=== PATIENT | male | born 1945 | race Caucasian/White ===

== ENCOUNTER 2016-08-15 09:10 | Day surgery (SDC) | payer BC, MEDICARE ==
--- NOTE | ~2016-08-15 | OP ---
Record Of Operation [facility] [place] [address] NAME: MARK SERNA : [birth year] STATUS : REG [facility]#: [id number] AGE: 70 ADM/REG DATE : 08/15/16 MR#: [id number] REPORT SERV DATE: 08/15/16 DICTATED BY: MARQUIS DHILLON DATE: 08/15/16 REPORT STATUS : Draft TRANSCRIBED BY: [employer] DATE: 08/15/16 DATE OF PROCEDURE: 08/15/2016 PROCEDURE: Colonoscopy, polypectomy, and biopsy. INDICATION: History of polyps. SEDATION: Diprivan. FINDING: Olympus video scope was passed into the cecum. TI was entered. In the proximal ascending colon, there were two polyps about 5 mm removed with cold forceps. In the proximal ascending colon, there was an area on a fold with somewhat diminished vascular pattern probably a centimeter. Biopsies were taken with Jumbo forceps. There were two polyps in the ascending colon at the side of the hepatic flexure. One was removed with hot snare completely. The other was removed with cold snare. There was some oozing, the area was clipped with two hemostatic clips. In the proximal descending colon near the splenic flexure. There was one polyp 5 mm removed with hot snare. There was another 3 mm polyp removed with Jumbo forceps. Distal transverse colon polyps of 5 to 7 mm was removed with hot snare. Moderate sigmoid diverticulosis. Rectal retroflexion was normal. IMPRESSION: Multiple colon polyps. One polyp in the proximal ascending colon. Unclear whether SSA, lipoma, or non-dysplastic lesion. PLAN: Await path. This is an addition to the EMR note. MG/JAVIER Marquis Dhillon M.D. / [id number] CC: Quinn Montoya JOHN CROMWELL
--- NOTE | ~2016-08-15 | EGD ---
EGD REPORT [facility] [address] [address] NAME: MARK SERNA : 43 STATUS : REG [facility]#: [id number] AGE: 70 ADM/REG DATE : 08/15/16 MR#: [id number] REPORT SERV DATE: 08/15/16 DICTATED BY: MARQUIS DHILLON DATE: 08/15/16 REPORT STATUS : Draft TRANSCRIBED BY: [employer] DATE: 08/15/16 [facility] Patient Name: Mark Serna Date of : 1945 Attending MD: MARQUIS DHILLON MD Procedure Date No Time: 08/15/2016 Procedure: Colonoscopy Indications: High risk colon cancer surveillance: Personal history of colonic polyps Referring MD: ZI RIDLEY Medicines: Propofol per Anesthesia Complications: No immediate complications. Procedure: Pre-Anesthesia Assessment: - ASA Grade Assessment: IV - A patient with severe systemic disease that is a constant threat to life. After I obtained informed consent, the scope was passed under direct vision. Throughout the procedure, the patient's blood pressure, pulse, and oxygen saturations were monitored continuously. The PCF H190L [id number] was introduced through the anus and advanced to the terminal ileum. The colonoscopy was performed without difficulty. The patient tolerated the procedure well. The quality of the bowel preparation was adequate. Findings: A sessile polyp was found in the proximal ascending colon. The polyp was 5 mm in size. The polyp was removed with a jumbo cold forceps. Resection and retrieval were complete. A sessile polyp was found in the proximal ascending colon. The polyp was 5 mm in size. The polyp was removed with a jumbo cold forceps. Resection and retrieval were complete. A hyperplastic polyp was found in the proximal ascending colon. The polyp was 7 mm in size. This was biopsied with a hot large-capacity forceps for histology. A sessile polyp was found at the hepatic flexure. The polyp was 7 mm in size. The polyp was removed with a hot snare. Resection and retrieval were complete. Estimated blood loss: none. A sessile polyp was found at the hepatic flexure. The polyp was 5 mm in size. The polyp was removed with a cold snare. Resection and retrieval were complete. Two hemostatic clips were successfully placed. Bleeding had stopped at the end of the procedure. A sessile polyp was found at the splenic flexure. The polyp was 5 mm in size. The polyp was removed with a hot snare. Resection and retrieval were complete. A sessile polyp was found at the splenic flexure. The polyp was 3 mm in EGD REPORT [address] [address] NAME: MAKR SERNA : [birth year] STATUS : REG [facility]#: [id number] AGE: 70 ADM/REG DATE : 08/15/16 MR#: [id number] REPORT SERV DATE: 08/15/16 DICTATED BY: MARQUIS DHILLON DATE: 08/15/16 REPORT STATUS : Draft TRANSCRIBED BY: [employer] DATE: 08/15/16 size. The polyp was removed with a jumbo cold forceps. Resection and retrieval were complete. A sessile polyp was found in the distal descending colon. The polyp was 7 mm in size. The polyp was removed with a hot snare. Resection and retrieval were complete. Multiple medium-mouthed diverticula were found in the sigmoid colon. The retroflexed view of the distal rectum and anal verge was normal and showed no anal or rectal abnormalities. Impression: - One 5 mm polyp in the proximal ascending colon. Resected and retrieved. - One 5 mm polyp in the proximal ascending colon. Resected and retrieved. - One 7 mm polyp in the proximal ascending colon. Biopsied. - One 7 mm polyp at the hepatic flexure. Resected and retrieved. - One 5 mm polyp at the hepatic flexure. Resected and retrieved. Clips were placed. - One 5 mm polyp at the splenic flexure. Resected and retrieved. - One 3 mm polyp at the splenic flexure. Resected and retrieved. - One 7 mm polyp in the distal descending colon. Resected and retrieved. - Diverticulosis in the sigmoid colon. Recommendation: - The patient will be observed post-procedure, until all discharge criteria are met. - Return to previous diet today. - Continue present medications. - Resume Plavix (clopidogrel) at prior dose today. Procedure Code(s): --- Professional --- 88023, Colonoscopy, flexible, proximal to splenic flexure; with removal of tumor(s), polyp(s), or other lesion(s) by snare technique 75271, 59, Colonoscopy, flexible, proximal to splenic flexure; with removal of tumor(s), polyp(s), or other lesion(s) by hot biopsy forceps or bipolar cautery 74636, 59, Colonoscopy, flexible, proximal to splenic flexure; with biopsy, single or multiple Diagnosis Code(s): --- Professional --- D12.4, Benign neoplasm of descending colon D12.3, Benign neoplasm of transverse colon D12.2, Benign neoplasm of ascending colon EGD REPORT [address] [address] NAME: MARK SERNA : [birth year] STATUS : REG [facility] PAT#: [id number] AGE: 70 ADM/REG DATE : 08/15/16 MR#: [id number] REPORT SERV DATE: 08/15/16 DICTATED BY: MARQUIS DHILLON DATE: 08/15/16 REPORT STATUS : Draft TRANSCRIBED BY: [employer] DATE: 08/15/16 K57.30, Diverticulosis of large intestine without perforation or abscess without bleeding Z86.010, Personal history of colonic polyps CPT copyright 2013 [employer]. All rights reserved. The codes documented in this report are preliminary and upon check scaler review may be revised to meet current compliance requirements. Marquis Dhillon MD MARQUIS DHILLON MD 08/15/2016 11:40 AM This report has been signed electronically. Number of Addenda: 0 Note Initiated On: 08/15/2016 10:18 AM Scope Withdrawal Time 0 hours 44 minutes 0 seconds [id number] [id number]
--- NOTE | ~2016-08-15 | EGD ---
EGD REPORT [facility] [address] [address] NAME: MARK SERNA : [birth year] STATUS : REG [facility]#: [id number] AGE: 70 ADM/REG DATE : 08/15/16 MR#: [id number] REPORT SERV DATE: 08/15/16 DICTATED BY: MARQUIS DHILLON DATE: 08/15/16 REPORT STATUS : Draft TRANSCRIBED BY: [employer] DATE: 08/15/16 [facility] Patient Name: Mark Serna Date of : 1945 Attending MD: MARQUIS DHILLON MD Procedure Date No Time: 08/15/2016 Procedure: Colonoscopy Indications: High risk colon cancer surveillance: Personal history of colonic polyps Referring MD: ZI RIDLEY Medicines: Propofol per Anesthesia Complications: No immediate complications. Procedure: Pre-Anesthesia Assessment: - ASA Grade Assessment: IV - A patient with severe systemic disease that is a constant threat to life. After I obtained informed consent, the scope was passed under direct vision. Throughout the procedure, the patient's blood pressure, pulse, and oxygen saturations were monitored continuously. The PCF H190L [id number] was introduced through the anus and advanced to the terminal ileum. The colonoscopy was performed without difficulty. The patient tolerated the procedure well. The quality of the bowel preparation was adequate. Findings: A sessile polyp was found in the proximal ascending colon. The polyp was 5 mm in size. The polyp was removed with a jumbo cold forceps. Resection and retrieval were complete. A sessile polyp was found in the proximal ascending colon. The polyp was 5 mm in size. The polyp was removed with a jumbo cold forceps. Resection and retrieval were complete. A hyperplastic polyp was found in the proximal ascending colon. The polyp was 7 mm in size. This was biopsied with a hot large-capacity forceps for histology. A sessile polyp was found at the hepatic flexure. The polyp was 7 mm in size. The polyp was removed with a hot snare. Resection and retrieval were complete. Estimated blood loss: none. A sessile polyp was found at the hepatic flexure. The polyp was 5 mm in size. The polyp was removed with a cold snare. Resection and retrieval were complete. Two hemostatic clips were successfully placed. Bleeding had stopped at the end of the procedure. A sessile polyp was found at the splenic flexure. The polyp was 5 mm in size. The polyp was removed with a hot snare. Resection and retrieval were complete. A sessile polyp was found at the splenic flexure. The polyp was 3 mm in EGD REPORT [address] [address] NAME: MARK SERNA : [birth year] STATUS : REG [facility]#: [id number] AGE: 70 ADM/REG DATE : 08/15/16 MR#: [id number] REPORT SERV DATE: 08/15/16 DICTATED BY: MARQUIS DHILLON DATE: 08/15/16 REPORT STATUS : Draft TRANSCRIBED BY: [employer] DATE: 08/15/16 size. The polyp was removed with a jumbo cold forceps. Resection and retrieval were complete. A sessile polyp was found in the distal descending colon. The polyp was 7 mm in size. The polyp was removed with a hot snare. Resection and retrieval were complete. Multiple medium-mouthed diverticula were found in the sigmoid colon. The retroflexed view of the distal rectum and anal verge was normal and showed no anal or rectal abnormalities. Impression: - One 5 mm polyp in the proximal ascending colon. Resected and retrieved. - One 5 mm polyp in the proximal ascending colon. Resected and retrieved. - One 7 mm polyp in the proximal ascending colon. Biopsied. - One 7 mm polyp at the hepatic flexure. Resected and retrieved. - One 5 mm polyp at the hepatic flexure. Resected and retrieved. Clips were placed. - One 5 mm polyp at the splenic flexure. Resected and retrieved. - One 3 mm polyp at the splenic flexure. Resected and retrieved. - One 7 mm polyp in the distal descending colon. Resected and retrieved. - Diverticulosis in the sigmoid colon. Recommendation: - The patient will be observed post-procedure, until all discharge criteria are met. - Return to previous diet today. - Continue present medications. - Resume Plavix (clopidogrel) at prior dose today. Procedure Code(s): --- Professional --- 79673, Colonoscopy, flexible, proximal to splenic flexure; with removal of tumor(s), polyp(s), or other lesion(s) by snare technique 94877, 59, Colonoscopy, flexible, proximal to splenic flexure; with removal of tumor(s), polyp(s), or other lesion(s) by hot biopsy forceps or bipolar cautery 26332, 59, Colonoscopy, flexible, proximal to splenic flexure; with biopsy, single or multiple Diagnosis Code(s): --- Professional --- D12.4, Benign neoplasm of descending colon D12.3, Benign neoplasm of transverse colon D12.2, Benign neoplasm of ascending colon EGD REPORT [address] [address] NAME: MARK SERNA : [birth year] STATUS : REG [facility] PAT#: [id number] AGE: 70 ADM/REG DATE : 08/15/16 MR#: [id number] REPORT SERV DATE: 08/15/16 DICTATED BY: MARQUIS DHILLON DATE: 08/15/16 REPORT STATUS : Draft TRANSCRIBED BY: [email or web address] DATE: 08/15/16 K57.30, Diverticulosis of large intestine without perforation or abscess without bleeding Z86.010, Personal history of colonic polyps CPT copyright 2013 [employer]. All rights reserved. The codes documented in this report are preliminary and upon universal winding machine operator review may be revised to meet current compliance requirements. Marquis Dhillon MD MARQUIS DHILLON MD 08/15/2016 11:40 AM This report has been signed electronically. Number of Addenda: 0 Note Initiated On: 08/15/2016 10:18 AM Scope Withdrawal Time 0 hours 44 minutes 0 seconds [id number] [place] [id number]
[~2016-08-15 09:10] MED LIST: ADVAIR250 INH; ALLEGRA180 PO; ALTA125 PO; ALTA5 PO; ASAB PO; ATRONASAL3 NAS; C25 PO; CENTRUM PO; CENTRUM TAB1 TAB PO; CORDARONE PO; COUMADIN3 MG PO; CYTO25 PO; DSS PO; FLONASE NAS; FOLBEE PLU1 OR; FOLBEE PO; GLUCPH PO; HALF81 PO; IMDUR30 PO; IMODIUM PO; ISOSORB DIN30 MG PO; L20 PO; LEVOXYL75 MCG PO; LOP50 PO; LOVAZA1 GM PO; METAMUCIL CAN7 OZ PO; METPAKSF PO; NIASPAN500 PO; NITROSTAT0.4 MG SL; PLAVIX PO; PRAVACHOL40 MG PO; PREV30 PO; SINGULAIR1 PO; SPIRIVA INH; SYN1 PO; TOBDEXOO OPH; TUMS E-X750 M2 PO; VIT D3 PO; XOPEN0.5ML INH; XOPENEX HFA INH; ZETIA PO; ZYRTEC ALLGY10 MG PO; [UNRECOGNIZED DRUG - OTHER] PO
== END 2016-08-15 23:59 | disposition home or self-care (01) ==
LOC: DMU 09:10
PROVIDERS: Internal Medicine Gastroenterology
PROC: 0DBK8ZZ Excision of Ascending Colon, Via Natural or Artificial Opening Endoscopic (ICD-10-PCS; principal; 2016-08-15 11:00)
PROC: 0DBM8ZZ Excision of Descending Colon, Via Natural or Artificial Opening Endoscopic (ICD-10-PCS; 2016-08-15 11:00)
PROC: 0DBL8ZZ Excision of Transverse Colon, Via Natural or Artificial Opening Endoscopic (ICD-10-PCS; 2016-08-15 11:00)
DX: D12.2 Benign neoplasm of ascending colon (principal); D12.3 Benign neoplasm of transverse colon; K57.30 Diverticulosis of large intestine without perforation or abscess without bleeding; I10 Essential (primary) hypertension; I25.10 Atherosclerotic heart disease of native coronary artery without angina pectoris; I25.2 Old myocardial infarction; I48.0 Paroxysmal atrial fibrillation; E78.00 Pure hypercholesterolemia, unspecified; E03.9 Hypothyroidism, unspecified; E11.42 Type 2 diabetes mellitus with diabetic polyneuropathy; J45.909 Unspecified asthma, uncomplicated; J44.9 Chronic obstructive pulmonary disease, unspecified; G47.33 Obstructive sleep apnea (adult) (pediatric); K21.9 Gastro-esophageal reflux disease without esophagitis; Z88.0 Allergy status to penicillin; Z86.010 Personal history of colon polyps; Z87.891 Personal history of nicotine dependence; Z95.5 Presence of coronary angioplasty implant and graft; Z96.1 Presence of intraocular lens; Z98.41 Cataract extraction status, right eye; Z98.42 Cataract extraction status, left eye; Z79.84 Long term (current) use of oral hypoglycemic drugs; Z79.51 Long term (current) use of inhaled steroids; Z79.82 Long term (current) use of aspirin; Z79.02 Long term (current) use of antithrombotics/antiplatelets; Z79.899 Other long term (current) drug therapy; Z98.890 Other specified postprocedural states
CPT/HCPCS: 82962; 88305